=== PATIENT | female | born 1990 | race Caucasian/White ===

== ENCOUNTER 2016-04-18 08:52 | Day surgery (SDC) | payer BC ==
[2016-04-15 15:37] VITALS: BMI 31.8
--- NOTE | 2016-04-18 06:12 | P.GSHP ---
History of Present Illness H&P Date: 04/18/16 CHIEF COMPLAINT: Back tumor. HISTORY OF PRESENT ILLNESS: Amanda Bang is a 25 year-old female who has had a long-standing history of a tumor along the back, however it has now been expressing purulent material. She actually had an infection that required antibiotics including it being drained. She complains of recurrence. She now presents for further evaluation and management. PAST MEDICAL HISTORY: Please see list. PAST SURGICAL HISTORY: Please see list. MEDICATIONS: Please see list. ALLERGIES: Please see list. SOCIAL HISTORY: No illicit drug use FAMILY HISTORY: No reports of Crohn disease or ulcerative colitis. REVIEW OF ORGAN SYSTEMS: CONSTITUTIONAL: No fevers or chills. HEENT: Denies any trouble with vision, hearing or nosebleeds. No difficulty swallowing. LYMPHATIC: The patient denies any lumps and bumps around the neck. ENDOCRINE: Denies any thyroid disorders. Denies any blood sugar glucose intolerance. RESPIRATORY: Denies pneumonia. Denies any troubles with breathing or dyspnea on exertion. CARDIOVASCULAR: Denies any chest pain, palpitations, or recent heart attacks. GASTROINTESTINAL: Denies fatty food intolerance. Denies change in bowel habits and gas bloat. GENITOURINARY: Denies any blood in urine or increased urinary frequency. MUSCULOSKELETAL: Denies any back pain, stiffness or joint arthritis. NEUROLOGIC: Denies any numbness or tingling along the distal extremities. No seizure disorders or headaches. PSYCHIATRIC: Denies any depression or suicidal ideation. HEMATOLOGIC: Denies any abnormal bleeding or bruising. BREASTS: Denies any breast lumps, pain or nipple discharge. PHYSICAL EXAM: VITAL SIGNS: Stable Patient is a 25-year-old female. Skin: 3 cm fluctuance along the upper back. Well-healed lanced site. GENERAL: Well developed and in no acute distress. Pleasant. HEENT: No sclera icterus. Extraocular movements grossly intact. Moist buccal mucosa. Head is atraumatic, normocephalic. Hears conversational speech. No nasal drainage. NECK: Supple without lymphadenopathy. No JV distention. CHEST: Non-labored respirations and equal bilateral excursions. CARDIOVASCULAR: Regular rate and rhythm. Palpable 2+ radial pulses. ABDOMEN: Soft. Non-tender. Nondistended. MUSCULOSKELETAL: No clubbing, cyanosis or edema. NEUROLOGIC: No focal or lateralizing signs. PSYCH: Appropriate affect. Alert and oriented to person, place and time. ASSESSMENT: 1. Back tumor. 2. Epidermoid cyst. PLAN: 1. I have discussed with her an excision of the entire tumor and subcutaneous tissue of the back, which she demonstrated understanding. 2. Risks of deformity and recurrence were reviewed. 3. Time of lifting restrictions was described for at least a week. Past Medical History Past Medical History: No Reported History History of Any Multi-Drug Resistant Organisms: None Reported Past Surgical History: No Surgical Hx Reported Past Anesthesia/Blood Transfusion Reactions: No Reported Reaction Additional Past Anesthesia/Blood Transfusion Reaction / Comment(s): NO PRIOR ANESTHESIA HX Past Psychological History: No Psychological Hx Reported Smoking Status: Never smoker Past Alcohol Use History: Occasional Past Drug Use History: None Reported - Past Family History Mother Family Medical History: No Reported History Medications and Allergies Home Medications Medication Instructions Recorded Confirmed Type Pnv with Ca,No.72/Iron/FA 1 each PO DAILY 04/15/16 04/15/16 History [ Plus Tablet] Allergies Allergy/AdvReac Type Severity Reaction Status Date / Time No Known Allergies Allergy Verified 04/15/16 15:27
[~2016-04-18 08:52] MED LIST: DEXAMETHASONE SOD PHOSPHATE 10 MG/ML 1 ML VIAL IV ONE; FAMOTIDINE 20 MG/2 ML VIAL IV PRN; HEPARIN SODIUM,PORCINE 5,000 UNIT/ML 1 ML VIAL SQ ONE; HYDROmorphone 1 MG/ML 1 ML SYRINGE IVP PRN; LACTATED RINGERS 1,000 ML IV SCH; LIDOCAINE 1% 20 ML VIAL (10MG/ML) FOR IV START INTRADERMA PRN; MIDAZOLAM 2 MG/2 ML VIAL IV PRN; Pre Op ABX Message 1 EACH MISC MISCELLANE ONE; SCOPOLAMINE 1.5MG/72HR PATCH TRANSDERM ONE; ceFAZolin 2 GM in SODIUM CHLORIDE 0.9% 100 ML IVPB ONE
[2016-04-18 10:23] VITALS: TEMP 97.6
[2016-04-18] MEDS ORDERED: LIDOCAINE 1% INJ 10MG/ML (20 ML MDV) ONE (12:02)
[2016-04-18] MEDS ORDERED: PROPOFOL 10 MG/ML 20 ML VIAL IV ONE (12:02)
[2016-04-18] MEDS ORDERED: MIDAZOLAM 2 MG/2 ML VIAL ONE (12:02)
[2016-04-18] MEDS ORDERED: fentaNYL (PF) 50 MCG/ML 2 ML AMP ONE (12:02)
[2016-04-18] MEDS ORDERED: KETOROLAC 30 MG/ML 1 ML VIAL ONE (12:02)
[2016-04-18] MEDS ORDERED: BUPIVACAIN-EPI 0.25%-1:200,000 30 ML VIAL SQ ONE ×2 (12:21)
--- NOTE | 2016-04-18 12:40 | P.PCN ---
Date of Procedure: 04/18/16 Preoperative Diagnosis: Subcutaneous tumor, upper back Postoperative Diagnosis: Same, mid upper back, 4 x 1.8 cm Procedure(s) Performed: Excision of subcutaneous upper back tumor, 4 x 1.8 cm Anesthesia: MAC, local (20 mL) Surgeon: Apolonia Escobar Estimated Blood Loss (ml): 10 Pathology: other (Subcutaneous tumor upper back) Condition: stable Disposition: floor
[2016-04-18] MEDS ORDERED: NALOXONE 0.4 MG/ML 1 ML VIAL IV PRN (12:42)
[2016-04-18 13:22] VITALS: RESP 18
[2016-04-18 13:45] VITALS: BP 116/78; PULSE 98
--- NOTE | 2016-04-21 07:58 | P.OP ---
Date of Procedure: 04/18/16 Description of Procedure: SURGEON: ARTHUR FISHER MD [employer] SERVICE TECHNICIAN: None PREOPERATIVE DIAGNOSES: 1. Upper back subcutaneous tumor. 2. Obesity. 3. BMI 31.8. 4. Obesity. POSTOPERATIVE DIAGNOSES: 1. Upper back subcutaneous tumor. 2. Obesity. 3. BMI 31.8. 4. Obesity. 5. Subcutaneous mid upper back tumor, 4 x 1.8 cm. OPERATION: 1. Excision of subcutaneous upper back tumor, 4 x 1.8 cm. 2. Intermediate closure of 5 cm upper back incision. ANESTHESIA: General with 20 mL 1% lidocaine with epinephrine. ESTIMATED BLOOD LOSS: 10 mL. SPECIMENS REMOVED: Subcutaneous tumor upper back COMPLICATIONS: None. OPERATIVE FINDINGS: 1. Subcutaneous soft tissue tumor 4 x 1.8 cm of the upper back. INDICATIONS: The patient is a 26-year-old female who presents with increased growth along the upper back that is causing moderate pain and swelling. She had opted for surgical excision, whereby benefits and risks of bleeding, infection, recurrence, cosmetic deformity need for further surgery were carefully described. Informed consent was obtained. DESCRIPTION OF PROCEDURE: The patient was brought to the operating room and initially placed in supine position. After general induction, she was repositioned in the right lateral decubitus position with appropriate padding between the legs and arms. The upper back was prepped and draped in standard sterile fashion. Prior to incision, a timeout protocol was confirmed with surgical team regarding the patient's name including procedures to be performed. Preoperative medications including Ancef 2 grams were administered. DVT prophylaxis with heparin including bilateral SCDs were placed. Next, the area along the back was marked with indelible marker. A transverse incision was made using #15 blade into the deep dermis. Electro- Bovie cautery was used to enter through the subcutaneous tissue whereby the fascia was encountered over the back. Next, the mass was mobilized widely and the depth to the fascia whereby the muscle was not involved. Electro- Bovie cautery was used to circumferentially dissect the lesion, which measured 4 x 1.8 cm as a deep subcutaneous tumor. Bovie cautery was used to check for hemostasis. Next, given the wide mass removed including complex subcutaneous pocket, Lembert sutures using 0 Vicryl was used to close the actual space. Multiple interrupted deep dermal sutures were placed to close the space. Next, 3-0 Vicryl was placed in a running fashion for the deep dermis. 4-0 Monocryl in a running subcuticular fashion was placed. Local anesthetic was infiltrated in the skin to address postoperative analgesia. The skin was dried. Dermabond tape with Dermabond liquid was placed length gautam over the 5-cm incision. Next, once dried, 4 x 4 followed by a large Tegaderm was placed for waterproof dressing. At the end of the procedure, needle, sponge, and instrument counts had been verified correct by the surgical forceps fabricator. The patient was taken to postanesthesia care unit in stable condition. Home care instructions including keeping her dressing on for the next 48 to 72 hours until follow up in the office was advised.
== END 2016-04-18 13:50 | disposition home or self-care (01) ==
LOC: OR 08:52
PROVIDERS: ATTEND Surgery Plastic and Reconstructive Surgery
DX: L72.0 Epidermal cyst (principal)
CPT/HCPCS: 81025; 88304; 11404; J2250; J1644; J1100; J0690; J2001; J3010; J1885; J2704; 99152; 99153